=== PATIENT | male | born 1970 | race African-American/Black ===

== ENCOUNTER 2018-09-11 02:13 | Emergency (ER) | payer MEDICAID ==
[~2018-09-11] VITALS: Ht 175.3 cm; Wt 78.0 kg
[2018-09-11 13:23] LABS: BASOPHILS % 0.4 % (0.0-2.0); EOSINOPHILS % 1.5 % (0.0-5.0); HEMATOCRIT. 32.5 % (42.0-52.0); HEMOGLOBIN. 10.8 g/dL (14.0-18.0); LYMPHOCYTES % 37.4 % (20.0-50.0); MEAN CORPUSCULAR HEMOGLOBIN 31.1 pg (28.0-32.0); MEAN CORPUSCULAR VOLUME 93.7 fL (80.0-94.0); MEAN PLATELET VOLUME 9.8 fl (7.4-10.4); MONOCYTES % 11.8 % (2.0-8.0); NEUTROPHILS % 48.9 % (40.0-76.0); PLATELET 165 x1000/uL (130-400); RED BLOOD CELL COUNT 3.47 mill/uL (4.7-6.1); RED CELL DISTRIBUTION WIDTH 13.6 % (11.6-14.6)
[2018-09-11 13:29] LABS: CHLORIDE 109 mEq/L (98-107); PROTHROMBIN TIME 10.4 sec (9.1-11.1)
[2018-09-11 13:33] LABS: ETHANOL BLOOD < 10 mg/dL
[2018-09-11 15:59] LABS: CLARITY URINE CLEAR (CLEAR); COLOR URINE YELLOW (YELLOW); KETONES URINE NEGATIVE (NEGATIVE); LEUKOCYTE ESTERASE URINE NEGATIVE (NEGATIVE); NITRITE URINE NEGATIVE (NEGATIVE); OCCULT BLOOD URINE NEGATIVE (NEGATIVE); PROTEIN URINE NEGATIVE (NEGATIVE); SPECIFIC GRAVITY URINE 1.008 (1.005-1.030); UROBILINOGEN URINE 0.2 E.U./dL (0.2-1.0)
[2018-09-11 16:10] LABS: *AMPHETAMINES SCREEN URINE NEGATIVE (NEGATIVE); *BARBITURATES SCREEN URINE NEGATIVE (NEGATIVE); *BENZODIAZEPINES SCREEN URINE NEGATIVE (NEGATIVE); *COCAINE SCREEN URINE NEGATIVE (NEGATIVE); PHENCYCLIDINE URINE SCREEN NEGATIVE (NEGATIVE)
[2018-09-11 16:11] LABS: CANNABINOID URINE SCREEN PRESUMTIVE POSITIVE (NEGATIVE); METHADONE URINE SCREEN NEGATIVE (NEGATIVE); OPIATES URINE SCREEN NEGATIVE (NEGATIVE)
[2018-09-11] MEDS ORDERED: IBUPROFEN 600MG TABLET PO ONE (21:00)
[2018-09-11] MEDS ORDERED: IBUPROFEN 600MG TABLET PO NR (22:31)
[2018-09-12] MEDS ORDERED: OLANZAPINE 5MG TABLET ODT PO ONE (18:00)
[2018-09-12] MEDS ORDERED: LORAZEPAM 2MG/ML CPJ IV ONE (19:15)
[2018-09-12] MEDS ORDERED: LEVETIRACETAM 1000MG/100ML 100 ML IV ONE (19:45)
[2018-09-13] MEDS ORDERED: LEVETIRACETAM 500MG TABLET PO ONE (07:15)
[2018-09-13 13:50] VITALS: BP 120/82
== END 2018-09-13 16:33 | disposition home or self-care (01) ==
LOC: EDBD 02:13 → ER 02:52
DX: R45.851 Suicidal ideations (principal); R45.850 Homicidal ideations; R07.89 Other chest pain; R06.02 Shortness of breath; I10 Essential (primary) hypertension; G40.909 Epilepsy, unspecified, not intractable, without status epilepticus; Z91.14 Patient's other noncompliance with medication regimen; Z63.32 Other absence of family member; F17.210 Nicotine dependence, cigarettes, uncomplicated; J45.909 Unspecified asthma, uncomplicated; Z98.890 Other specified postprocedural states; Z88.8 Allergy status to other drugs, medicaments and biological substances
CPT/HCPCS: 36415; 71045; 80053; 80305; 80307; 80320; 80329; 81003; 83880; 84484; 85025; 85610; 93005; 99284; J1953; J2060; G0480

== ENCOUNTER 2020-09-23 20:27 | Emergency (ER) | payer MEDICAID ==
[~2020-09-23] VITALS: Ht 188 cm; Wt 100.0 kg
[2020-09-23] MEDS ORDERED: SODIUM CHLORIDE 0.9% 1,000 ML IV ONE (21:30)
[2020-09-23] MEDS ORDERED: LEVETIRACETAM 1000MG PREMIX 100 ML IV ONE (21:30)
[2020-09-23 23:37] LABS: BASOPHILS % 0.6 % (0.0-2.0); EOSINOPHILS % 1.4 % (0.0-5.0); HEMATOCRIT. 30.8 % (42.0-52.0); HEMOGLOBIN. 10.3 g/dL (14.0-18.0); LYMPHOCYTES % 34.8 % (20.0-50.0); MEAN CORPUSCULAR HEMOGLOBIN 31.3 pg (28.0-32.0); MEAN CORPUSCULAR VOLUME 93.5 fL (80.0-94.0); MEAN PLATELET VOLUME 9.3 fl (7.4-10.4); MONOCYTES % 7.8 % (2.0-8.0); NEUTROPHILS % 55.4 % (40.0-76.0); PLATELET 109 x1000/uL (130-400); RED BLOOD CELL COUNT 3.29 mill/uL (4.7-6.1); RED CELL DISTRIBUTION WIDTH 14.6 % (11.6-14.6)
[2020-09-23 23:41] LABS: CHLORIDE 113 mEq/L (98-107)
[2020-09-23 23:46] LABS: ETHANOL BLOOD 15 mg/dL
[2020-09-23 23:50] LABS: CREATINE KINASE 715 IU/L (39-308)
[2020-09-24 04:43] VITALS: BP 106/68
== END 2020-09-24 06:03 | disposition home or self-care (01) ==
LOC: ER 20:27
DX: R55 Syncope and collapse (principal); R03.0 Elevated blood-pressure reading, without diagnosis of hypertension
CPT/HCPCS: 36415; 80053; 80307; 80320; 80329; 82550; 84443; 85025; 93005; 96365; 99285; J1953; J7030; Z7610; G0480

== ENCOUNTER 2020-10-01 18:43 | Emergency (ER) | payer MEDICAID ==
[~2020-10-01] VITALS: Ht 188 cm; Wt 102.0 kg
[2020-10-01 19:51] LABS: CLARITY URINE CLEAR (CLEAR); COLOR URINE YELLOW (YELLOW); KETONES URINE NEGATIVE (NEGATIVE); LEUKOCYTE ESTERASE URINE NEGATIVE (NEGATIVE); NITRITE URINE NEGATIVE (NEGATIVE); OCCULT BLOOD URINE NEGATIVE (NEGATIVE); PROTEIN URINE NEGATIVE (NEGATIVE); SPECIFIC GRAVITY URINE 1.004 (1.005-1.030); UROBILINOGEN URINE 0.2 E.U./dL (0.2-1.0)
[2020-10-01 20:02] LABS: *AMPHETAMINES SCREEN URINE NEGATIVE (NEGATIVE); *BARBITURATES SCREEN URINE NEGATIVE (NEGATIVE); *BENZODIAZEPINES SCREEN URINE NEGATIVE (NEGATIVE); *COCAINE SCREEN URINE NEGATIVE (NEGATIVE); CANNABINOID URINE SCREEN NEGATIVE (NEGATIVE); METHADONE URINE SCREEN NEGATIVE (NEGATIVE); OPIATES URINE SCREEN NEGATIVE (NEGATIVE); PHENCYCLIDINE URINE SCREEN NEGATIVE (NEGATIVE)
[2020-10-01 20:11] LABS: BASOPHILS % 0.6 % (0.0-2.0); EOSINOPHILS % 2.2 % (0.0-5.0); HEMATOCRIT. 39.2 % (42.0-52.0); HEMOGLOBIN. 12.7 g/dL (14.0-18.0); MEAN CORPUSCULAR HEMOGLOBIN 30.6 pg (28.0-32.0); MEAN CORPUSCULAR VOLUME 94.7 fL (80.0-94.0); MEAN PLATELET VOLUME 9.7 fl (7.4-10.4); MONOCYTES % 6.9 % (2.0-8.0); NEUTROPHILS % 51.3 % (40.0-76.0); PLATELET 149 x1000/uL (130-400); RED BLOOD CELL COUNT 4.14 mill/uL (4.7-6.1); RED CELL DISTRIBUTION WIDTH 15.8 % (11.6-14.6)
[2020-10-01 20:14] LABS: CHLORIDE 108 mEq/L (98-107)
[2020-10-01 20:18] LABS: ETHANOL BLOOD 127 mg/dL
[2020-10-02 09:30] VITALS: BP 121/64
== END 2020-10-02 10:18 | disposition home or self-care (01) ==
LOC: ER 18:43
DX: R45.851 Suicidal ideations (principal); J45.909 Unspecified asthma, uncomplicated; I49.9 Cardiac arrhythmia, unspecified; Z91.14 Patient's other noncompliance with medication regimen; Z88.8 Allergy status to other drugs, medicaments and biological substances; Z98.890 Other specified postprocedural states; Z86.59 Personal history of other mental and behavioral disorders
CPT/HCPCS: 36415; 80053; 80305; 80320; 81003; 85025; 93005; 99285; G0480

== ENCOUNTER 2020-12-15 16:20 | Emergency (ER) | payer MEDICAID ==
[~2020-12-15] VITALS: Ht 182.9 cm; Wt 82.0 kg
[2020-12-15] MEDS ORDERED: SODIUM CHLORIDE 0.9% 1,000 ML IV ONE (17:45)
[2020-12-15] MEDS ORDERED: LEVETIRACETAM 500MG PREMIX 100 ML IV ONE (17:45)
[2020-12-15 19:58] LABS: BASOPHILS % 0.6 % (0.0-2.0); EOSINOPHILS % 2.5 % (0.0-5.0); HEMATOCRIT. 35.1 % (42.0-52.0); HEMOGLOBIN. 11.9 g/dL (14.0-18.0); LYMPHOCYTES % 31.2 % (20.0-50.0); MEAN CORPUSCULAR HEMOGLOBIN 31.9 pg (28.0-32.0); MEAN PLATELET VOLUME 9.7 fl (7.4-10.4); MONOCYTES % 7.4 % (2.0-8.0); NEUTROPHILS % 58.3 % (40.0-76.0); PLATELET 139 x1000/uL (130-400); RED BLOOD CELL COUNT 3.74 mill/uL (4.7-6.1); RED CELL DISTRIBUTION WIDTH 15.2 % (11.6-14.6)
[2020-12-15 20:06] LABS: CHLORIDE 109 mEq/L (98-107)
[2020-12-15 20:12] LABS: ETHANOL BLOOD 112 mg/dL
[2020-12-15] MEDS ORDERED: LEVETIRACETAM 500MG PREMIX 100 ML IV SCH (22:30)
[2020-12-16 00:18] LABS: CLARITY URINE CLEAR (CLEAR); COLOR URINE YELLOW (YELLOW); KETONES URINE NEGATIVE (NEGATIVE); LEUKOCYTE ESTERASE URINE NEGATIVE (NEGATIVE); NITRITE URINE NEGATIVE (NEGATIVE); OCCULT BLOOD URINE NEGATIVE (NEGATIVE); PH URINE 5.5 (4.5-8.0); PROTEIN URINE NEGATIVE (NEGATIVE); SPECIFIC GRAVITY URINE 1.019 (1.005-1.030); UROBILINOGEN URINE 0.2 E.U./dL (0.2-1.0)
[2020-12-16 00:21] LABS: *BARBITURATES SCREEN URINE NEGATIVE (NEGATIVE); *BENZODIAZEPINES SCREEN URINE PRESUMTIVE POSITIVE (NEGATIVE); *COCAINE SCREEN URINE NEGATIVE (NEGATIVE)
[2020-12-16 00:22] LABS: *AMPHETAMINES SCREEN URINE NEGATIVE (NEGATIVE); CANNABINOID URINE SCREEN PRESUMTIVE POSITIVE (NEGATIVE); METHADONE URINE SCREEN NEGATIVE (NEGATIVE); OPIATES URINE SCREEN NEGATIVE (NEGATIVE); PHENCYCLIDINE URINE SCREEN NEGATIVE (NEGATIVE)
[2020-12-16 05:35] VITALS: BP 130/71
== END 2020-12-16 05:35 | disposition home or self-care (01) ==
LOC: ER 16:20
DX: G40.909 Epilepsy, unspecified, not intractable, without status epilepticus (principal); F10.129 Alcohol abuse with intoxication, unspecified; Z20.822 Contact with and (suspected) exposure to COVID-19; Y90.8 Blood alcohol level of 240 mg/100 ml or more; F12.90 Cannabis use, unspecified, uncomplicated; F16.10 Hallucinogen abuse, uncomplicated; Z91.14 Patient's other noncompliance with medication regimen; J45.909 Unspecified asthma, uncomplicated; R45.851 Suicidal ideations
CPT/HCPCS: 36415; 80053; 80305; 80307; 80320; 80329; 81003; 85025; 87426; 93005; 96361; 96374; 99285; J1953; J7030; G0480

== ENCOUNTER 2022-03-07 21:43 | Emergency (ER) | payer MEDICAID, OTHER ==
[~2022-03-07] VITALS: Ht 180.3 cm; Wt 104.0 kg
[2022-03-07] MEDS ORDERED: LEVETIRACETAM 1000MG PREMIX 100 ML IV ONE (23:30)
[2022-03-08] MEDS ORDERED: ONDANSETRON HCL 4MG/2ML INJ IV ONE (01:00)
[2022-03-08 01:07] LABS: CLARITY URINE CLEAR (CLEAR); COLOR URINE YELLOW (YELLOW); KETONES URINE NEGATIVE (NEGATIVE); LEUKOCYTE ESTERASE URINE NEGATIVE (NEGATIVE); NITRITE URINE NEGATIVE (NEGATIVE); OCCULT BLOOD URINE NEGATIVE (NEGATIVE); PROTEIN URINE NEGATIVE (NEGATIVE); SPECIFIC GRAVITY URINE 1.005 (1.005-1.030); UROBILINOGEN URINE 0.2 E.U./dL (0.2-1.0)
[2022-03-08 01:08] LABS: BASOPHILS % 0.7 % (0.0-2.0); EOSINOPHILS % 1.7 % (0.0-5.0); HEMATOCRIT. 36.7 % (42.0-52.0); HEMOGLOBIN. 12.1 g/dL (14.0-18.0); MEAN CORPUSCULAR HEMOGLOBIN 30.7 pg (28.0-32.0); MEAN CORPUSCULAR VOLUME 92.9 fL (80.0-94.0); MEAN PLATELET VOLUME 9.5 fl (7.4-10.4); NEUTROPHILS % 61.6 % (40.0-76.0); PLATELET 132 x1000/uL (130-400); RED BLOOD CELL COUNT 3.95 mill/uL (4.7-6.1); RED CELL DISTRIBUTION WIDTH 13.7 % (11.6-14.6)
[2022-03-08 01:14] LABS: CHLORIDE 112 mEq/L (98-107)
[2022-03-08 01:31] LABS: ETHANOL BLOOD < 10 mg/dL; PHOSPHORUS 2.3 mg/dL (2.5-4.9)
[2022-03-08 01:44] LABS: *AMPHETAMINES SCREEN URINE NEGATIVE (NEGATIVE); *BARBITURATES SCREEN URINE NEGATIVE (NEGATIVE); *BENZODIAZEPINES SCREEN URINE NEGATIVE (NEGATIVE); *COCAINE SCREEN URINE NEGATIVE (NEGATIVE); CANNABINOID URINE SCREEN NEGATIVE (NEGATIVE); METHADONE URINE SCREEN NEGATIVE (NEGATIVE); OPIATES URINE SCREEN NEGATIVE (NEGATIVE); PHENCYCLIDINE URINE SCREEN NEGATIVE (NEGATIVE)
[2022-03-08] MEDS ORDERED: POTASSIUM-SODIUM PHOSPHATE POWDER PACKET PO NR (02:00)
[2022-03-08] MEDS ORDERED: MECLIZINE 25MG TABLET PO ONE (02:30)
[2022-03-08 03:30] VITALS: BP 124/66
== END 2022-03-08 03:38 | disposition home or self-care (01) ==
LOC: ER 21:43
DX: R56.9 Unspecified convulsions (principal); J45.909 Unspecified asthma, uncomplicated; I10 Essential (primary) hypertension; F20.9 Schizophrenia, unspecified
CPT/HCPCS: 36415; 70450; 71045; 80053; 80305; 80320; 81003; 83735; 84100; 84443; 85025; 93005; 96365; 96375; 99285; J1953; J2405; J8597; G0480